=== PATIENT | female | born 1995 | race Caucasian/White ===

== ENCOUNTER 2019-02-27 19:07 | Emergency (ER) | payer OTHER ==
[~2019-02-27] VITALS: Ht 160 cm; Wt 50.0 kg
[2019-02-27 19:08] VITALS: Ht 160 cm; Wt 50.0 kg
[2019-02-27] MEDS ORDERED: ACETAMINOPHEN 325 MG TAB PO STA (19:21)
[2019-02-27] MEDS ORDERED: LORAZEPAM 2 MG INJ IV STA (19:21)
[2019-02-27] MEDS ORDERED: SOD CHLORIDE 0.9% 1,000 ML IV STA (19:21)
[2019-02-27 20:51] VITALS: BP 92/57; PULSE 91; RESP 17
== END 2019-02-27 20:53 | disposition home or self-care (01) ==
LOC: E/R 19:07
DX: G40.909 Epilepsy, unspecified, not intractable, without status epilepticus (principal); R40.2142 Coma scale, eyes open, spontaneous, at arrival to emergency department; R40.2362 Coma scale, best motor response, obeys commands, at arrival to emergency department; R40.2252 Coma scale, best verbal response, oriented, at arrival to emergency department
CPT/HCPCS: 36415; 80048; 81025; 82962; 96374; 99284; J2060; J7030